=== PATIENT | male | born 1945 | race Caucasian/White ===

== ENCOUNTER → 2016-10-19 | Outpatient (CLI) | payer MEDICARE ==
[~2016-10-19] MED LIST: AMOX875T47 PO; ASP81TEC PO; CLON1TAB3 PO; CRV6.25T PO; CYCL10TA45 PO; ESCI10TA49 PO; FURO20TA4 PO; GLIM2TAB PO; HYDR-3811 PO; NFLOSA25TA PO; OXYGEN INH; PRAV40TA2 PO; SPRN25T PO; ZLP10T PO
[2016-10-19 14:09] LABS: BASOPHILS % (AUTO) 0 % (0-2); EOSINOPHILS # (AUTO) 0.2 10^3uL; EOSINOPHILS % (AUTO) 5 % (0-4); MEAN CORPUSCULAR HGB CONC 32.5 g/dL (31.0-37.0); MEAN CORPUSCULAR VOLUME 98 FL (80-100); MEAN PLATELET VOLUME 10.7 FL (6.0-9.5); MONOCYTES # (AUTO) 0.3 X10^3; MONOCYTES % (AUTO) 8 % (3-11); NEUTROPHILS # (AUTO) 2.5 X10^3; NEUTROPHILS % (AUTO) 62 % (51-67); PLATELET COUNT 103 10^3uL (150-450); WHITE BLOOD COUNT 3.96 10^3uL (4.0-11.0)
[2016-10-19 15:28] LABS: ANION GAP 19.4 MEQ/L (3-15); CALCULATED IONIZED CALCIUM 3.9 mg/dL (3.8-4.6); TOTAL PROTEIN 7.9 g/dL (6.4-8.5)
[2016-10-19 15:46] LABS: BILIRUBIN,URINE Negative (Negative); CLARITY,URINE Clear; COLOR,URINE Yellow; GLUCOSE, URINE (UA) Negative (Negative); LEUKOCYTE ESTERASE ,URINE Negative (Negative); PH,URINE 5.5 (5.0 - 8.0); UROBILINOGEN,URINE 0.2 mg/dL (0.2-1.0)
[2016-10-19 16:07] LABS: RBC,URINE None Seen /HPF; URINE CENTRIFUGED VOLUME 12 mL
== END ==
LOC: LAB 13:33
PROVIDERS: ATTEND Family Medicine
DX: E11.9 Type 2 diabetes mellitus without complications (principal); I50.33 Acute on chronic diastolic (congestive) heart failure; M17.0 Bilateral primary osteoarthritis of knee
CPT/HCPCS: 36415; 80053; 80061; 81003; 81015; 82043; 83036; 83880; 84550; 85025; 86140